=== PATIENT | female | born 1995 | race Caucasian/White ===

== ENCOUNTER 2017-02-05 16:22 | Emergency (ER) | payer OTHER ==
[2017-02-05 17:13] VITALS: BP 122/66
[2017-02-05] MEDS ORDERED: BUPIVACAINE 0.5% 50 ML VIAL. INJ ONE (17:45)
[2017-02-05] MEDS ORDERED: DIPHTH,PERTUSS(ACELL),TET TOX 0.5 ML DISP.SYRIN. VAX IM ONE (18:00)
--- NOTE | 2017-02-05 18:26 | PHYS DOC ---
Past Medical History Past Medical History: No Pertinent History Past Surgical History: Other Additional Past Surgical Histo: L BUNION SX Alcohol Use: Occasionally Drug Use: None Adult General Chief Complaint Chief Complaint: LACERATION/AVULSION HPI HPI Patient is a 21 year old female who presents with left second toe pain and nail avulsion after dropping a bottle of wine on her left second toe today. Review of Systems Review of Systems Constitutional: Denies fever or chills [] Musculoskeletal: Denies back pain or joint pain [] Integument: left second toe pain Neurologic: Denies headache, focal weakness or sensory changes [] Current Medications Current Medications Current Medications Medications (Trade) Dose Ordered Sig/Lashaun Start Time Stop Time Status Last Admin Dose Admin Bupivacaine HCl (Marcaine 0.5%) 50 ml 1X ONCE 02/05/17 17:45 02/05/17 17:46 DC 02/05/17 17:31 50 ML Diphtheria/ Tetanus/Acell Pertussis (Boostrix) 0.5 ml ONCE ONCE 02/05/17 18:00 02/05/17 18:01 DC 02/05/17 17:32 0.5 ML Allergies Allergies Allergies Coded Allergies Type Severity Reaction Last Updated Verified No Known Drug Allergies 02/05/17 No Physical Exam Physical Exam Constitutional: Well developed, well nourished, no acute distress, non-toxic appearance. [] Skin: Warm, dry, no erythema, no rash. [] Back: No tenderness, no CVA tenderness. [] Extremities: left second toe nail appears to be partially avulsed from the base of the nail, the sides are barely attached. Full range of motion to the affected toe. +2 left pedal pulse. Cap refill less than 2 seconds the affected toe. Sensation intact to the affected toe. Neurologic: Alert and oriented X 3, normal motor function, normal sensory function, no focal deficits noted. [] Psychologic: Affect normal, judgement normal, mood normal. [] Current Patient Data Vital Signs Vital Signs Date Time Temp Pulse Resp B/P (MAP) Pulse Ox O2 Delivery O2 Flow Rate FiO2 02/05/17 17:13 98.7 80 17 100 Room Air 98.7 EKG EKG [] Radiology/Procedures Radiology/Procedures Indication: Left second toe nail avulsion Procedure: The patient was placed in the appropriate position and the second toe was successfully do nerve blocked with bupivacaine 0.5%. The area was cleaned with 150 ML of normal saline and Betadine, posterior aspect of the nail maur[place] was removed from the avulsed nail, the nail was cleaned. The nail was returned back in place and held in place with 4 interrupted sutures using 3. 0 Vicryl and covered with nonstick dressing. Course & Med Decision Making Course & Med Decision Making Pertinent Labs and Imaging studies reviewed. (See chart for details) Patient has a partially avulsed left second toe nail after a bottle of wine fell on her toe. X-rays of the left foot interpreted by Dr. Thakkar was negative for any acute findings. Left second toe nail was put back in place as documented in procedures. Patient was instructed to remove the rest of the nail maur[place] on the affected toe. Tetanus was updated. Discharged with instructions to keep the area clean and dry. Informed the nail might fail to grow but the hope it will grow back. Follow -up with PCP in one to 2 weeks as needed. Dragon Disclaimer Dragon Disclaimer This electronic medical record was generated, in whole or in part, using a voice recognition dictation system. Departure Departure Impression: Primary Impression: Nail avulsion Additional Impression: Contusion of toe of left foot Disposition: HOME, SELF-CARE Condition: STABLE Referrals: CHRISTEL COSTA (PCP) follow up with your doctor as needed Patient Instructions: Contusion, Nail Avulsion Injury Additional Instructions: You were seen for an avulsed left second toenail. We were able to put it back in place. Our hope is it will help the new nail will grow, sometimes this does not happen. Keep the area clean and dry. Remove the rest of the nail mauritian on the affected toe. Follow-up with your doctor in 1-2 weeks as needed. Complete your oral antibiotics. Scripts Acetaminophen With Codeine (TYLENOL WITH CODEINE #3 TABLET) 1 Each Tablet 1 TAB PO PRN Q6HRS Y for PAIN, #30 TAB Prov: MUTUNGA,LISA HONEYCOMB [employer]ANK[employer] MAKER 02/05/17 Cephalexin (CEPHALEXIN) 500 Mg Tablet 1 TAB PO QID, #40 TAB Prov: MUTUNGA,LISA HONE[employer]COMB [employer]KER 02/05/17 Problem Qualifiers Primary Impression: Nail avulsion Encounter type: initial encounter Qualified Codes: S61.309A - Unspecified open wound of unspecified finger with damage to nail, initial encounter Additional Impression: Contusion of toe of left foot Encounter type: initial encounter Toe: lesser toe Damage to nail status: with damage Qualified Codes: S90.222A - Contusion of left lesser toe(s) with damage to nail, initial encounter LISA HARMON APRN Feb 05, 2017 18:26
[2017-02-05] MEDS ORDERED: ACET-704 PO (19:41)
[2017-02-05] MEDS ORDERED: CEPH500T PO (19:41)
--- NOTE | 2017-02-06 09:02 | RAD ---
Left foot, 3 views, 02/05/2017: History: Injury, pain There has been previous bunion type surgery with deformity of the distal first metatarsal. There are 2 screws at the surgical site. No acute fracture or dislocation is identified. IMPRESSION: No acute bony abnormality is detected.
== END 2017-02-05 19:47 | disposition home or self-care (01) ==
LOC: ER 16:22
DX: S91.205A Unspecified open wound of left lesser toe(s) with damage to nail, initial encounter (principal); W20.8XXA Other cause of strike by thrown, projected or falling object, initial encounter; Y93.89 Activity, other specified; Y92.89 Other specified places as the place of occurrence of the external cause; Y99.8 Other external cause status
CPT/HCPCS: 11760; 73630; 90471; 90715; 99284; J3490; 99285-25